=== PATIENT | female | born 1990 | race American Indian/Alaskan Native ===

== ENCOUNTER 2016-10-24 07:00 | Emergency (ER) | payer MEDICAID ==
[2016-10-24 07:28] VITALS: TEMP 98.1; BMI 49.9
--- NOTE | 2016-10-24 07:51 | EDPRACDOC ---
- General Information Chief Complaint: Flu-Like Symptoms Stated Complaint: COUGH Time Seen by Provider: 10/24/16 07:44 Information Source: Patient Mode Of Arrival: Car Home Medications: Home Medications Bupropion HCl [Bupropion HCl Sr] 100 mg PO BID 02/11/16 Buspirone HCl [Buspar] 7.5 mg PO BID 04/28/16 Iron Fum & Poly #1/C/L. Casei [Fusion Capsule] 1 each PO DAILY 06/30/16 Cephalexin Monohydrate [Keflex] 500 mg PO Q8H #30 cap 09/11/16 Ketorolac Tromethamine [Toradol] 10 mg PO Q6H PRN #20 tab 09/11/16 Benzonatate [Tessalon Perle] 100 mg PO TID PRN #30 capsule 10/24/16 Allergies/Adverse Reactions: Allergies Allergy/AdvReac Type Severity Reaction Status Date / Time No Known Allergies Allergy Verified 10/24/16 07:27 - History of Present Illness Onset: Wednesday HPI: STARTED WITH URI SYMPTOMS, NASAL CONGESTION. COUGH HAS WORSENED. NO FEVERS. NO WHEEZING. DENIES . HEADACHE, WORSE WITH COUGHING, SHARP. NONSMOKER. TAKING MOTRIN. Current Symptoms: Reports: Cough Cough: Reports: Clear ED Past Medical History - History Reviewed Yes Nurses notes reviewed and agree except as marked - Patient Medical History Neurological History: Reports: Migraine Musculoskeletal History: Reports: Arthritis Psychological History: Reports: Depression Surgical History: Reports: Cholecystectomy - Social Medical History Smoking Status: Never smoker EDM Review of Systems - Review of Systems ROS Negative Except as Marked: Yes All systems reviewed and were negative except as marked Constitutional: No Symptoms Reported Eyes: No Symptoms Reported Ears: No Symptoms Reported Throat: No Symptoms Reported Nose: Congestion Mouth: No Symptoms Reported Respiratory: Cough Cardiovascular: Chest Pain (ACHING.) Gastrointestinal: No Symptoms Reported Genitourinary: No Symptoms Reported - Physical Exam Constitutional: Alert (Awake), No apparent distress Oriented to: Time, Person, Place Last recorded Vital Signs: Last Vital Signs Temp 98.1 F 10/24/16 07:21 Pulse 64 10/24/16 07:26 Resp 16 10/24/16 07:26 BP 118/68 10/24/16 07:26 Pulse Ox 98 10/24/16 07:26 Oxygen Pulse Oxygen Saturation 98 O2 Device Room Air Oxygen Flow Rate Fraction of Inspired Oxygen ( FIO2) - HEENT Head: Normal ( normocephalic) Eye Exam: Normal (PERRL, EOMI, Sclera white) Oropharynx: Normal (Pharynx:Moist without exudate,Gums-no swelling) Tympanic Membrane: Normal ENT EAC: Normal TMJ: Normal Nose: No Symptoms Reported (septum midline) Neck: Normal (FROM, trachea at midline) - Respiratory/Cardiovascular Respiratory: Normal - CTA (BBS clear to auscultation without adventitious sounds ) Cardiovascular: Normal (RRR without murmur, gallop or rub) - GI Auscultation: Normal (NABS) Palpation: Normal (Soft,No rebound or guarding, non distended) Tenderness: Non tender Herron's Sign: Negative - Musculoskeletal Back: Normal (Non-Tender) Extremities: Normal (Normal tone, Pulses 2+ No cyanosis or edema, FROM) - Integumentary Skin: Normal, Warm, Dry Lymphatics: Normal (no adenopathy) - Neurologic Memory Impaired: Normal Motor Function: Normal (Normal tone, Pulses 2+ No cyanosis or edema, FROM) Cranial Nerve: Normal (CN II-X11 intact sensation, strength 5/5) Cerebellar: Normal Mood Description: Normal Perception: Normal Decision Time to Discharge: 07:52 - Departure Yes I personally saw and evaluated the patient. Disposition: Home Condition: Stable Final Diagnosis: Acute bronchitis Qualifiers: Bronchitis organism: unspecified organism Qualified Code(s): J20.9 - Acute bronchitis, unspecified Instructions: Acute Bronchitis (ED) Education/Counseling Given To: Patient Education/Counseling Given Regarding: Diagnosis Referrals: Rik Chapman MD [Primary Care Provider] - Two Weeks Prescriptions: Benzonatate [Tessalon Perle] 100 mg PO TID PRN #30 capsule PRN Reason: Cough Additional Instructions: SALINE RINSE NOSE MULTIPLE TIMES A DAY.
[2016-10-24 08:18] VITALS: BP 116/64; PULSE 62
== END 2016-10-24 08:08 | disposition home or self-care (01) ==
LOC: ED 07:00
DX: J20.9 Acute bronchitis, unspecified (principal)
CPT/HCPCS: 99283